=== PATIENT | male | born 1960 ===

== ENCOUNTER → 2019-01-10 20:51 | Outpatient (ROUT) | payer OTHER, SELFPAY ==
[2019-01-10 21:33] LABS: Amylase 57 U/L (30-110); Lipase 111 U/L (23-300)
[2019-01-10 22:39] LABS: T4 Total Thyroxine 7.33 ug/dL (5.5-11.0)
[2019-01-10 22:53] LABS: Thyroid Stimulating Hormone 5.84 uIU/mL (0.47-4.68)
== END ==
PROVIDERS: Visit Provider Naturopath
DX: E03.9 Hypothyroidism, unspecified (principal); K30 Functional dyspepsia
CPT/HCPCS: 36415; 82150; 83690; 84436; 84443; 84481; 86677